=== PATIENT | female | born 1990 | race Caucasian/White ===

== ENCOUNTER 2016-08-31 05:09 | Inpatient (IN) ==
[2016-08-29 09:42] LABS: HEMATOCRIT 39.2 % (37.0-47.0); HEMOGLOBIN 13.3 g/dL (12.0-16.0); MCH 28.7 PG (27-31); MCHC 33.9 g/dL (33-37); MCV 84.7 FL (81-99); MPV 10.2 FL (7.4-10.4); RBC 4.63 XMIL (4.2-5.4)
--- NOTE | 2016-08-30 13:16 | HISTORY AND PHYSICAL ---
ADMITTING DIAGNOSES: 1. Term . 2. macrosomia. 3. -induced hypertension. SUMMARY: María Elena Jaffe is a 26-year-old 2, para 1-0-0-1, her blood type is B positive. Rubella immune. Hepatitis B surface antigen, HIV, and group B strep is negative. Her has been complicated by elevated blood pressures recently. She also has macrosomia by ultrasound. Her ultrasound earlier this week gave an estimated weight of 10 pounds 6 ounces which is 99.87 percentile. After discussing options with the patient, we will proceed with primary delivery. PAST MEDICAL HISTORY: Patient has had a previous vaginal delivery. She has no chronic medical or surgical illnesses. CURRENT MEDICATIONS: vitamins. ALLERGIES: To penicillin and sulfa drugs. PHYSICAL EXAMINATION: GENERAL: Shows a well-developed, well-nourished female. Current blood pressure is 140/100. Her weight is 194 pounds. This is a 10 pound weight gain. She has 2+ proteinuria. CARDIOVASCULAR: Regular rate and rhythm. No murmurs, rubs, gallops. PULMONARY: Clear. BREASTS: No masses. ABDOMEN: Gravid. Cervix is closed. EXTREMITIES: Trace edema. IMPRESSION: 1. induced hypertension. 2. macrosomia. PLAN: For these indications, will proceed with primary delivery. Risks of the surgery including pain, bleeding, infection, bowel or bladder injury, and anesthesia complications have been discussed. We also discussed the risks of shoulder dystocia due to macrosomia. cc: Casa Fitch MD
[2016-08-31] MEDS ORDERED: REGLAN PO ONE (05:12)
[2016-08-31] MEDS ORDERED: PEPCID PO ONE (05:12)
[2016-08-31] MEDS ORDERED: CLINDAMYCIN 900 MG/NS 900 MG/50 ML IVPB IV ONE (05:13)
[2016-08-31] MEDS: LR 1,000 ML IV SCH ×2 (05:20→06:14)
[2016-08-31] MEDS ORDERED: REGLAN IV ONE (05:30)
[2016-08-31] MEDS ORDERED: PEPCID IV ONE (05:30)
[2016-08-31] MEDS ORDERED: BICITRA PO ONE (05:30)
[2016-08-31 06:18] LABS: URINE SOURCE VOIDED
[2016-08-31 06:18] LABS: MANUAL DIFF NEEDED? NO
[2016-08-31 06:22] LABS: BASO% 0.2 % (0.0-0.8); EOS# 0.14 X1000 (0.0-0.7); EOS% 1.4 % (0.0-10.0); HEMATOCRIT 37.4 % (37.0-47.0); IMM GRAN# 0.06 X1000 (0.0-0.04); IMM GRAN% 0.6 % (0.0-0.5); LYMPH# 2.35 X1000 (1.2-3.4); MCH 29.2 PG (27-31); MCHC 34.8 g/dL (33-37); MONO# 0.89 X1000 (0.11-0.59); MONO% 8.7 % (1.7-9.3); MPV 10.9 FL (7.4-10.4); NEUT% 66.1 % (42.2-75.2); PLT 227 X1000 (130-400); RBC 4.45 XMIL (4.2-5.4)
[2016-08-31] MEDS ORDERED: PITOCIN ONE ×2 (06:24→06:25)
[2016-08-31] MEDS ORDERED: ZOFRAN ONE ×2 (06:24→06:25)
[2016-08-31] MEDS ORDERED: NEO-SYNEPHRINE ONE ×2 (06:24→06:25)
[2016-08-31] MEDS ORDERED: TORADOL ONE ×2 (06:24→06:25)
[2016-08-31] MEDS ORDERED: DURAMORPH ONE (06:26)
[2016-08-31] MEDS ORDERED: EPHEDRINE ONE (06:27)
[2016-08-31] MEDS ORDERED: PITOCIN 20 UNITS/LR 20 UNITS/1,000 ML IV.SOLN ONE (06:34)
[2016-08-31 06:36] LABS: BILIRUBIN URINE NEGATIVE (NEGATIVE); BLOOD URINE 3+ (NEGATIVE); CLARITY VERY CLOUDY (CLEAR); COLOR YELLOW; GLUCOSE URINE NEGATIVE (NEGATIVE); LEUKOCYTES URINE 2+ (NEGATIVE); NITRITE URINE NEGATIVE (NEGATIVE); PH URINE 6.5; PROTEIN URINE 1+(30 mg/dL) mg/dL (NEGATIVE); UROBILINOGEN URINE NORMAL
[2016-08-31] MEDS ORDERED: BENADRYL IV PRN (08:07)
[2016-08-31] MEDS ORDERED: NORCO-5 PO PRN ×2 (08:07→08:44)
[2016-08-31] MEDS ORDERED: NARCAN INJ PRN (08:07)
[2016-08-31] MEDS ORDERED: ZOFRAN IV PRN ×2 (08:07)
[2016-08-31] MEDS ORDERED: ZOFRAN ODT PO PRN (08:07)
[2016-08-31] MEDS ORDERED: MORPHINE IV PRN (08:10)
--- NOTE | 2016-08-31 08:34 | OPERATIVE NOTE ---
PROCEDURE DATE: 08/31/2016 SURGEON: Casa Fitch MD. INSURANCE CLAIMS ANALYST: Wil. ANESTHESIA: Spinal. OPERATION PERFORMED: Primary low transverse section. PREOPERATIVE DIAGNOSIS: Suspected macrosomia. POSTOPERATIVE DIAGNOSIS: Macrosomia. FINDINGS: At 0707, a 9 pound 13 ounce male was delivered in a vertex presentation by low- transverse . There was a nuchal cord x1. Apgars were 10 at one minute and 10 at five minutes. SUMMARY: The patient was taken back to the operating room where a spinal anesthetic was placed. She was then placed in the supine position with a left lateral tilt. The abdomen was prepped and draped in the usual fashion. A Lozada catheter was placed in the urinary bladder. Once satisfactory conduction anesthesia was demonstrated, a Pfannenstiel incision was made. This incision was taken down to the fascia. The fascia was excised transversely. The underlying rectus muscles were bluntly and sharply dissected free. The rectus muscle was in midline. The peritoneum was entered. Lower uterine segment was identified. A bladder flap was created. A low transverse incision was made across the myometrium. This incision was extended laterally using digital pressure. Membranes were ruptured, revealing copious amounts of clear fluid. The 's vertex was delivered through this incision. The nuchal cord was reduced. The shoulders and body delivered without complications. Oropharynx was bulb suctioned. The cord was clamped and cut. The was handed to the nurses for further care and evaluation. Cord blood was obtained. Placenta was manually removed. The uterus was delivered out of the abdominal wall and explored. All membrane fragments were removed. The myometrium was then reapproximated using a running #1 chromic interlocking suture, followed by several of #1 chromic [id number] sutures for complete hemostasis. The uterus was placed back in the pelvic cavity. The pelvic cavity was irrigated with copious amounts of sterile water. Complete hemostasis was noted across the suture line. At this time, our first and the second sponge, instrument, and needle counts were reported as correct. The peritoneum was closed using a running chromic suture. The fascia was closed using running Vicryl sutures x2. The adipose tissues were reapproximated using a running 3-0 Vicryl suture. Skin edges were reapproximated using a running 3-0 Monocryl suture. Final sponge, instrument, and needle count was reported as correct. Blood loss estimated at 100 mL. No immediate complications were noted. The patient went to the recovery room in stable condition. cc: Casa Fitch MD
[2016-08-31] MEDS ORDERED: DEMEROL PO PRN ×2 (08:44)
[2016-08-31] MEDS ORDERED: DULCOLAX PR PRN (08:44)
[2016-08-31] MEDS ORDERED: PERCOCET-5 PO PRN (08:44)
[2016-08-31] MEDS ORDERED: PERCOCET-10 PO PRN (08:44)
[2016-08-31] MEDS ORDERED: HYDROXYZINE IM PRN (08:44)
[2016-08-31] MEDS ORDERED: CYTOTEC PO PRN (08:44)
[2016-08-31] MEDS ORDERED: HYDROXYZINE PO PRN (08:44)
[2016-08-31] MEDS ORDERED: BOOSTRIX VACCINE IM ONE (08:44)
[2016-08-31] MEDS ORDERED: PITOCIN IM PRN (08:44)
[2016-08-31] MEDS ORDERED: PITOCIN 20 UNITS/LR 20 UNITS/1,000 ML IV.SOLN IV ONE (08:44)
[2016-08-31] MEDS ORDERED: AMBIEN PO PRN (08:44)
[2016-08-31] MEDS ORDERED: PHENERGAN IM PRN (08:44)
[2016-08-31] MEDS ORDERED: DEMEROL IM PRN (08:44)
[2016-08-31] MEDS ORDERED: M-M-R II VACCINE SUBQ ONE (08:44)
[2016-08-31] MEDS ORDERED: MYLICON PO PRN (08:44)
[2016-08-31] MEDS: PRECARE PO SCH (09:33)
[2016-08-31] MEDS: MYLICON PO SCH ×3 (09:34→18:25)
[2016-08-31] MEDS ORDERED: TORADOL IV SCH ×2 (12:30)
[2016-08-31] MEDS: TORADOL IV SCH ×2 (13:21→19:38)
[2016-08-31] MEDS: PITOCIN 10 UNITS/LR 10 UNIT/1,000 ML IV.SOLN IV SCH (16:13)
[2016-09-01] MEDS: PITOCIN 10 UNITS/LR 10 UNIT/1,000 ML IV.SOLN IV SCH (00:14)
[2016-09-01] MEDS: MYLICON PO SCH ×5 (00:15→21:10)
[2016-09-01] MEDS: PERICOLACE PO SCH ×2 (00:15→21:09)
[2016-09-01] MEDS: TORADOL IV SCH (02:29)
[2016-09-01 06:07] LABS: HEMATOCRIT 30.3 % (37.0-47.0); HEMOGLOBIN 9.8 g/dL (12.0-16.0); MCH 28.2 PG (27-31); MCHC 32.3 g/dL (33-37); MCV 87.3 FL (81-99); MPV 10.5 FL (7.4-10.4); RBC 3.47 XMIL (4.2-5.4)
[2016-09-01] MEDS ORDERED: LR 1,000 ML IV SCH (07:40)
[2016-09-01] MEDS: PRECARE PO SCH (08:44)
[2016-09-01] MEDS: MOTRIN PO PRN ×2 (12:12→21:09)
[2016-09-01] MEDS: NORCO-10 PO PRN ×3 (12:12→21:09)
[2016-09-02] MEDS: MYLICON PO SCH (08:51)
[2016-09-02] MEDS: PRECARE PO SCH (08:51)
[2016-09-02] MEDS: MOTRIN PO PRN (08:52)
[2016-09-02] MEDS: NORCO-10 PO PRN (08:52)
[2016-09-02 10:35] VITALS: BP 119/72
--- NOTE | 2016-09-02 18:36 | DISCHARGE SUMMARY ---
ADMISSION DATE: 08/31/2016 DISCHARGE DATE: 09/02/2016 ADMITTING DIAGNOSES: 1. Intrauterine at term. 2. -induced hypertension. 3. Suspected macrosomia. HISTORY OF PRESENT ILLNESS: Patient is a 26-year-old, G2, P1, with an intrauterine at term. The patient had in-office ultrasound that revealed estimated weight of 99 percentile. Risks, benefits and alternatives discussed with the patient and she desired to proceed for primary delivery. Please see full operative report for details. Postoperatively, she was transferred to the floor for routine postop care. On postop day #1, Lozada catheter was discontinued and patient demonstrated the ability to void, and hematocrit returned 30.3. On postop day #2, patient was tolerating a regular diet, ambulating without difficulty, and felt to be stable for discharge home. DISCHARGE DISPOSITION: The patient is discharged home. PROCEDURE: Primary section. FOLLOWUP: Patient to follow up in 1 week for postop visit. cc: MD Casa Laird MD
== END 2016-09-02 11:30 | disposition home or self-care (01) ==
LOC: P.LD 05:09
PROVIDERS: ADMIT Obstetrics & Gynecology; ATTEND Obstetrics & Gynecology